=== PATIENT | female | born 1970 | race Caucasian/White ===

== ENCOUNTER 2019-12-20 10:57 | Inpatient (IN) | payer BC, SELFPAY ==
[~2019-12-20] VITALS: Ht 165.1 cm; Wt 78.0 kg
[2019-12-20] MEDS ORDERED: IBUP-1970 PO (11:35)
[2019-12-20] MEDS ORDERED: MORPHINE SULFATE 10 MG/ML VIAL IVP PRN (14:00)
[2019-12-20] MEDS ORDERED: ONDANSETRON HCL 4 MG/2 ML VIAL IVP PRN ×2 (14:00→14:30)
[2019-12-20] MEDS ORDERED: LR 1,000 ML IV SCH (14:00)
[2019-12-20] MEDS ORDERED: METOCLOPRAMIDE HCL 10 MG/2 ML VIAL IVP PRN (14:00)
[2019-12-20] MEDS ORDERED: MEPERIDINE HCL/PF 25 MG/ML DISP.SYRIN IVP PRN (14:00)
[2019-12-20] MEDS ORDERED: MIDAZOLAM HCL 2 MG/2 ML VIAL (VERSED) IVP PRN (14:00)
[2019-12-20] MEDS ORDERED: HYDROmorphone 2 MG TAB PO PRN (14:30)
[2019-12-20] MEDS ORDERED: IBUPROFEN 800 MG TABLET PO PRN (14:30)
[2019-12-20] MEDS ORDERED: KETOROLAC TROMETHAMINE 30 MG VIAL IVP PRN (14:30)
[2019-12-20] MEDS ORDERED: OXYCODONE/ACETAMINOPHEN 5-325 TABLET PO PRN (14:30)
[2019-12-20] MEDS ORDERED: SIMETHICONE 80 MG TAB.CHEW PO PRN (14:30)
[2019-12-20] MEDS: HYDROmorphone 2 MG/ML VIAL IVP PRN ×2 (14:32→14:37)
[2019-12-20] MEDS ORDERED: HYDROmorphone 1 MG INJ. 1 MG/ML AMPUL ONE ×4 (14:53→15:42)
[2019-12-20] MEDS ORDERED: MIDAZOLAM HCL 2 MG/2 ML VIAL (VERSED) ONE (15:05)
[2019-12-20 16:30] VITALS: BP_SYST 140
[2019-12-20] MEDS ORDERED: TEMAZEPAM 15 MG CAPSULE PO PRN (21:00)
[2019-12-20] MEDS ORDERED: SENNOSIDES/DOCUSATE SODIUM 1 TAB TABLET(SENOKOT-S) PO PRN (21:00)
[2019-12-20] MEDS: LR 1,000 ML IV SCH (21:31)
[2019-12-20] MEDS: OXYCODONE/ACETAMINOPHEN 5-325 TABLET PO PRN (21:40)
[2019-12-21 00:40] VITALS: BP_SYST 125
[2019-12-21] MEDS: OXYCODONE/ACETAMINOPHEN 5-325 TABLET PO PRN ×3 (05:28→16:03)
[2019-12-21 06:43] LABS: BASOPHILS % (AUTO) 0.1 % (0.0-2.0); HEMATOCRIT 30.7 % (36-48); HEMOGLOBIN 9.9 g/dL (12.0-16.0); LYMPHOCYTES # (AUTO) 1.7 K/uL (1.0-5.5); LYMPHOCYTES % (AUTO) 12.2 % (20.5-51.5); MEAN CORPUSCULAR HEMOGLOBIN 26 pg (27-31); MEAN CORPUSCULAR HGB CONC 32 % (32-36); MEAN CORPUSCULAR VOLUME 82 fL (79.0-98.0); MONOCYTES % (AUTO) 7.2 % (1.7-9.3); NEUTROPHILS # (AUTO) 11.1 K/uL (1.8-7.7); NEUTROPHILS % (AUTO) 80.5 % (40.0-70.0); PLATELET COUNT (AUTO) 296 K/uL (130-430); RED BLOOD CELL COUNT(AUTO) 3.76 MIL/uL (4.2-6.2); RED CELL DISTRIBUTION WIDTH 15.6 % (9.0-15.0); WHITE BLOOD COUNT (AUTO) 13.8 K/uL (4.8-10.8)
[2019-12-21 08:00] VITALS: BP_SYST 115
[2019-12-21 12:00] VITALS: BP_SYST 117
[2019-12-21] MEDS: LR 1,000 ML IV SCH ×2 (13:46→22:18)
[2019-12-21 16:00] VITALS: BP_SYST 113
[2019-12-21 20:00] VITALS: BP_SYST 110
[2019-12-22 01:20] VITALS: BP_SYST 107
[2019-12-22] MEDS: OXYCODONE/ACETAMINOPHEN 5-325 TABLET PO PRN ×2 (04:31→09:36)
[2019-12-22] MEDS: LR 1,000 ML IV SCH (06:18)
[2019-12-22 08:00] VITALS: BP_SYST 128
[2019-12-22 09:55] VITALS: BP_SYST 128
[2019-12-22] MEDS ORDERED: OXYC-128 PO (10:02)
[2019-12-22] MEDS ORDERED: IBUP-1971 PO (10:03)
[2019-12-22] MEDS ORDERED: DOCU-144 PO (10:03)
== END 2019-12-22 12:57 | disposition home or self-care (01) | DRG 519 ==
LOC: SMU 10:57
PROVIDERS: ADMIT Obstetrics & Gynecology; ATTEND Obstetrics & Gynecology
PROC: 0UB00ZZ Excision of Right Ovary, Open Approach (ICD-10-PCS; 2019-12-20)
PROC: 0UT90ZL Resection of Uterus, Supracervical, Open Approach (ICD-10-PCS; principal; 2019-12-20 12:30)
DX: D25.9 Leiomyoma of uterus, unspecified (principal); D64.9 Anemia, unspecified; N83.201 Unspecified ovarian cyst, right side; Z20.828 Contact with and (suspected) exposure to other viral communicable diseases; N92.0 Excessive and frequent menstruation with regular cycle; E66.9 Obesity, unspecified; Z68.28 Body mass index [BMI] 28.0-28.9, adult
CPT/HCPCS: 36415; 85025; 87081; 88307; J1170; J1885; J3465; J7120; U0002